=== PATIENT | male | born 1975 | race African-American/Black ===

== ENCOUNTER 2016-02-24 05:21 | Emergency (ER) | payer MEDICAID ==
--- NOTE | 2016-02-24 05:47 | ED Physician Chart ---
Chief Complaint/HPI - Patient Information Date Seen:: 02/24/16 Time Seen:: 05:35 Chief Complaint:: recurrent cycle cell crisis History of Present Illness:: Bilat. hip pain. Pt. has known cycle cell anemia. Req. IM pain meds only because of bad veins. Thinks current crisis brought on by weather. No chest pain or SOB. C/o hip pain. Allergies:: Allergies Allergy/AdvReac Type Severity Reaction Status Date / Time aspirin Allergy Verified 02/24/16 05:34 Penicillins [PCN] Allergy Verified 02/24/16 05:34 Vitals:: Vital Signs - 8 hr 02/24/16 05:35 Temp 96.8 F HR 87 RR 18 BP 102/56 O2 Sat % 100 Historian:: Patient Review of Systems - Review of Systems General/Constitutional: No fever Skin: No skin lesions Head: No headache Eyes: No loss of vision ENT: No earache, No sore throat Neck: No neck pain Cardio Vascular: No chest pain, No palpitations Pulmonary: No SOB, No cough, No wheezing GI: No vomiting, No diarrhea G/U: No dysuria Musculoskeletal: Bone or joint pain Psychiatric: No prior psych history Hematopoietic: No bruising Allergic/Immuno: No urticaria Neurological: No syncope Past Medical History - Past Medical History Past Medical History: Other (cycle cell anemia) Family History: Other (no other known congen. disease) Social History: Non Smoker, No Alcohol Surgical History: None Medication: Reviewed (dilaudid, folic acid, hydroxyurea) Family Medical History - Family Member Sister Name:: cycle cell Other Medical History: SICKLE CELL ANEMIA Physical Exam - Physical Examination General/Constitutional: Awake, Well-developed, well-nourished, Alert, GCS 15, Non-toxic appearing, Ambulatory Head: Atraumatic Eyes: Lids, conjuctiva normal, PERRL, EOMI Skin: Nl inspection ENMT: External ears, nose nl, Lips, teeth, gums nl, Oropharynx nl Neck: Full ROM w/o pain Respiratory: Nl effort/Exclusion, Clear to Auscultation, No Wheeze/Rhonchi/Rales Cardio Vascular: RRR, No murmur, gallop, rubs GI: No tenderness/rebounding/guarding : No CVA tenderness Extremities: normal strength in all extremities Neuro/Psych: Alert/oriented, No focal deficits ED Septic Shock - . Is Septic Shock (SBP<90, OR Lactate>4 mmol\L) present?: No - <6hrs of presentation: Vital Signs: Vital Signs - 8 hr 02/24/16 05:35 Temp 96.8 F HR 87 RR 18 BP 102/56 O2 Sat % 100 Reassessment (Disposition) - Reassessment Reassessment Condition:: Improved - Aftercare/Follow up Instructions Aftercare/Follow-Up Instructions:: Refer to Discharge Instructions Medication Prescribed:: Rx: Percocet 10/325 sig: one po q4h prn. No driving. Disp. #12. No refill. - Patient Disposition Discharge/Transfer:: Home Condition at Disposition:: Stable ED Discharge Plan - Patient Disposition Admit/Discharge/Transfer: PT DISCHARGED HOME Condition at Disposition: Improved
[2016-02-24] MEDS ORDERED: HYDROmorphone 1 mg/mL 1mL Syr IM STA (05:48)
[2016-02-24] MEDS ORDERED: HYDROmorphone 1 mg/mL 1mL Syr ONE (05:52)
== END 2016-02-24 08:20 | disposition home or self-care (01) ==
LOC: ER 05:21
DX: M25.552 Pain in left hip (principal); M25.551 Pain in right hip; D64.89 Other specified anemias; Z88.0 Allergy status to penicillin; Z88.6 Allergy status to analgesic agent
CPT/HCPCS: 99284; 96372 ×2; Z7610; Q0162; J1170; J1200; Z7502